=== PATIENT | male | born 1945 | race Caucasian/White ===

== ENCOUNTER → 2016-11-11 | Outpatient (CLI) | payer MEDICARE, OTHER ==
[2016-11-11 09:15] LABS: ABSOLUTE EOSINOPHILS # (AUTO) 0.1 10^3/uL (0.0-0.6); ABSOLUTE MONOCYTES (AUTO) 0.4 10^3/uL (0.1-1.4); ABSOLUTE NEUT (AUTO) 3.4 10^3/uL (1.7-8.2); BASOPHILS % (AUTO) 0.7 % (0-2); EOSINOPHILS % (AUTO) 2.3 % (0-6); HEMOGLOBIN 15.6 g/dL (13.5-17.0); HGB HCT DIFFERENCE 1.8; LYMPHOCYTES % (AUTO) 19.8 % (13-45); MEAN CORPUSCULAR HGB CONC 34.7 g/dL (32.0-36.0); MEAN CORPUSCULAR VOLUME 98 fl (80-97); MONOCYTES % (AUTO) 8.1 % (3-13); RED BLOOD COUNT 4.59 10^6/uL (4.35-5.55); RED CELL DISTRIBUTION WIDTH 13.1 % (11.5-14.0); SEGMENTED NEUTROPHILS % (AUTO) 69.1 % (42-78); WHITE BLOOD COUNT 4.9 10^3/uL (4.0-10.5)
[2016-11-11 09:34] LABS: ALANINE AMINOTRANSFERASE 50 U/L (21-72); ALKALINE PHOSPHATASE 99 U/L (38-126); ANION GAP 11 (5-19); ASPARTATE AMINO TRANSFERASE 38 U/L (17-59); BILIRUBIN,DIRECT 0.3 mg/dL (0.0-0.4); BILIRUBIN,TOTAL 0.9 mg/dL (0.2-1.3); BLOOD UREA NITROGEN 14 mg/dL (7-20); CALCIUM 9.4 mg/dL (8.4-10.2); CARBON DIOXIDE 22 mmol/L (22-30); CHLORIDE 107 mmol/L (98-107); CHOLESTEROL 190.87 mg/dL (0-200); CREATININE RESULT 0.82 mg/dL (0.52-1.25); Direct HDL 34 mg/dL (>40); GLUCOSE 105 mg/dL (75-110); POTASSIUM 4.2 mmol/L (3.6-5.0); SODIUM 140.2 mmol/L (137-145); TOTAL PROTEIN 6.7 g/dL (6.3-8.2); TRIGLYCERIDES 187 mg/dL (<150); URIC ACID 5.9 mg/dL (3.5-8.5)
[2016-11-11 09:45] LABS: DIRECT LDL 123 mg/dL (<100)
[2016-11-11 09:51] LABS: VLDL CHOLESTEROL 37.4 mg/dL (10-31)
== END ==
LOC: OD 08:35
PROVIDERS: ATTEND Urology
DX: R97.20 Elevated prostate specific antigen [PSA] (principal); E78.5 Hyperlipidemia, unspecified; E03.9 Hypothyroidism, unspecified; M10.9 Gout, unspecified; R53.83 Other fatigue; M19.90 Unspecified osteoarthritis, unspecified site
CPT/HCPCS: 36415; 80053; 80061; 84153; 84443; 84550; 85025

== ENCOUNTER → 2017-02-11 | Outpatient (CLI) | payer MEDICARE, OTHER ==
[2017-02-11 11:37] LABS: ALANINE AMINOTRANSFERASE 55 U/L (21-72); ALBUMIN 3.9 g/dL (3.5-5.0); ALKALINE PHOSPHATASE 89 U/L (38-126); ASPARTATE AMINO TRANSFERASE 35 U/L (17-59); BILIRUBIN,DIRECT 0.4 mg/dL (0.0-0.4); BILIRUBIN,TOTAL 1.2 mg/dL (0.2-1.3); TOTAL PROTEIN 6.1 g/dL (6.3-8.2)
== END ==
LOC: OD 09:58
PROVIDERS: ATTEND Internal Medicine
DX: Z79.899 Other long term (current) drug therapy (principal)
CPT/HCPCS: 36415; 80076

== ENCOUNTER → 2017-04-18 | Outpatient (CLI) | payer MEDICARE, OTHER ==
[2017-04-19 11:37] LABS: HEPATITIS A AB TOTAL Positive (Negative); HEPATITIS B SURFACE AB QUANT <3.1 mIU/mL (Immunity>9.9)
== END ==
LOC: LAB 09:36
PROVIDERS: ATTEND Internal Medicine
DX: Z01.84 Encounter for antibody response examination (principal); R10.13 Epigastric pain
CPT/HCPCS: 36415; 86317; 86708; 86709

== ENCOUNTER → 2017-04-21 | Outpatient (CLI) | payer MEDICARE, OTHER ==
--- NOTE | 2017-04-21 16:43 | RADIOLOGY REPORT (SQ) ---
EXAM DESCRIPTION: FEMUR RIGHT COMPLETED DATE/TIME: 04/21/2017 3:58 pm REASON FOR STUDY: M25.551 M89.9 RIGHT HIP AND FEMUR PAIN M25.551 PAIN IN RIGHT HIP M89.9 DISORDER OF BONE, UNSPECIFIED COMPARISON: None. NUMBER OF VIEWS: Two views. TECHNIQUE: Two radiographic images acquired of the right femur to include hip and knee in at least o ne projection. LIMITATIONS: None. FINDINGS: MINERALIZATION: Normal. BONES: No acute fracture. Right total hip arthroplasty hardware appears in expected position. No wo rrisome bone lesions. SOFT TISSUES: No obvious swelling or foreign body. OTHER: No other significant finding. IMPRESSION: NO RADIOGRAPHIC EVIDENCE OF ACUTE INJURY. TECHNICAL DOCUMENTATION: JOB ID: [id number] [place]-72 2010 [employer]- All Rights Reserved
--- NOTE | 2017-04-21 16:46 | RADIOLOGY REPORT (SQ) ---
EXAM DESCRIPTION: HIP RIGHT AP/LATERAL COMPLETED DATE/TIME: 04/21/2017 3:58 pm REASON FOR STUDY: M25.551 M89.9 RIGHT HIP AND FEMUR PAIN M25.551 PAIN IN RIGHT HIP M89.9 DISORDER OF BONE, UNSPECIFIED COMPARISON: None. NUMBER OF VIEWS: Two views. TECHNIQUE: AP pelvis and additional frog-leg view of the right hip. LIMITATIONS: None. FINDINGS: MINERALIZATION: Normal. RIGHT HIP: No fracture or dislocation. No acute fracture. Right total hip arthroplasty hardware jerman ears in expected position. No worrisome bone lesions. LEFT HIP: No fracture or dislocation. No acute fracture. Left total hip arthroplasty hardware appear s in expected position. No worrisome bone lesions. PUBIS AND ISCHIUM: No fracture. PELVIS: No fracture. SACRUM: No fracture or dislocation. No worrisome bone lesions. LOWER LUMBAR SPINE: Moderate degenerative disc disease. SOFT TISSUES: No findings. OTHER: No other significant finding. IMPRESSION: Bilateral total hip arthroplasty hardware appears in expected position. NO RADIOGRAPHIC EVIDENCE OF ACUTE INJURY. TECHNICAL DOCUMENTATION: JOB ID: [id number] [place]-72 2010 [employer]- All Rights Reserved
== END ==
LOC: RAD 15:31
PROVIDERS: ATTEND Internal Medicine
DX: M25.551 Pain in right hip (principal); M89.9 Disorder of bone, unspecified; Z96.642 Presence of left artificial hip joint

== ENCOUNTER → 2017-07-23 | Outpatient (CLI) | payer MEDICARE, OTHER ==
--- NOTE | 2017-07-23 15:12 | RADIOLOGY REPORT (SQ) ---
EXAM DESCRIPTION: CT LT UPPER EXTREMITY WITHOUT COMPLETED DATE/TIME: 07/23/2017 1:42 pm REASON FOR STUDY: M25.512 PAIN IN LEFT SHOULDER M25.512 PAIN IN LEFT SHOULDER COMPARISON: None. TECHNIQUE: Axial imaging performed through the leftshoulder with reformatted oblique coronal and obl ique sagittal imaging windowed for bone and soft tissues. All CT scanners at this facility use dose modulation, iterative reconstruction, and/or weight based d osing when appropriate to reduce radiation dose to as low as reasonably achievable (ALARA). [facility]: Dose Right [facility]: CareDose [facility]: Dose Right [facility]: Teradose 4D [facility]: [employer] RADIATION DOSE: CT Rad equipment meets quality standard of care and radiation dose reduction techniq ues were employed. CTDIvol: 17.5 mGy. DLP: 378 mGy-cm. mGy. LIMITATIONS: Artifact from metallic left humeral head replacement. Distal most tip of the left prox imal humerus component of the joint replacement is incompletely included in the field of view. FINDINGS: Left shoulder prosthesis is present. The flat glenoid component is anchored by multiple s crews, seen on axial images 20-25. The convex dome-shaped glenoid prosthesis does not align properly with the flat glenoid component. The convex dome-shaped component is rotated superiorly and anterio rly, best shown on axial image 20-25, and sagittal reconstruction image 35. The proximal humeral component is posterior and inferior to the dome shaped glenoid portion of the re placement. This is best shown on coronal reconstruction image 53. There is lucency between the [place] bony humerus and humeral component along the proximal humeral met aphysis which could indicate loosening of the prosthesis. Visualized left lung, left ribs, left hilar and mediastinal structures are unremarkable. 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
== END ==
LOC: RAD 13:33
PROVIDERS: ATTEND Orthopaedic Surgery
DX: M25.512 Pain in left shoulder (principal)

== ENCOUNTER → 2017-08-06 | Outpatient (CLI) | payer MEDICARE, OTHER ==
[2017-08-06 09:59] LABS: ABSOLUTE BASOPHILS # (AUTO) 0.1 10^3/uL (0.0-0.2); ABSOLUTE EOSINOPHILS # (AUTO) 0.1 10^3/uL (0.0-0.6); ABSOLUTE LYMPHOCYTES (AUTO) 1.3 10^3/uL (0.5-4.7); ABSOLUTE MONOCYTES (AUTO) 0.4 10^3/uL (0.1-1.4); ABSOLUTE NEUT (AUTO) 3.4 10^3/uL (1.7-8.2); EOSINOPHILS % (AUTO) 2.2 % (0-6); HEMOGLOBIN 15.2 g/dL (13.5-17.0); LYMPHOCYTES % (AUTO) 24.6 % (13-45); MEAN CORPUSCULAR HEMOGLOBIN 34.2 pg (27.0-33.4); MEAN CORPUSCULAR HGB CONC 35.4 g/dL (32.0-36.0); MEAN CORPUSCULAR VOLUME 97 fl (80-97); MONOCYTES % (AUTO) 8.3 % (3-13); PLATELET COUNT 198 10^3/uL (150-450); RED BLOOD COUNT 4.45 10^6/uL (4.35-5.55); RED CELL DISTRIBUTION WIDTH 12.6 % (11.5-14.0); SEGMENTED NEUTROPHILS % (AUTO) 63.9 % (42-78); TOTAL CELLS COUNTED % (AUTO) 100 %; WHITE BLOOD COUNT 5.3 10^3/uL (4.0-10.5)
[2017-08-06 10:13] LABS: ALANINE AMINOTRANSFERASE 50 U/L (21-72); ALKALINE PHOSPHATASE 92 U/L (38-126); ANION GAP 8 (5-19); ASPARTATE AMINO TRANSFERASE 33 U/L (17-59); BILIRUBIN,DIRECT 0.2 mg/dL (0.0-0.4); BLOOD UREA NITROGEN 15 mg/dL (7-20); CALCIUM 9.6 mg/dL (8.4-10.2); CARBON DIOXIDE 28 mmol/L (22-30); CHLORIDE 105 mmol/L (98-107); CHOLESTEROL 156.03 mg/dL (0-200); GLUCOSE 102 mg/dL (75-110); POTASSIUM 4.6 mmol/L (3.6-5.0); SODIUM 141.3 mmol/L (137-145); TOTAL PROTEIN 6.1 g/dL (6.3-8.2); TRIGLYCERIDES 155 mg/dL (<150)
[2017-08-06 10:24] LABS: DIRECT LDL 85 mg/dL (<100)
[2017-08-06 10:31] LABS: FREE T4 (FREE THYROXINE) 0.7 ng/dL (0.78-2.19)
[2017-08-06 10:45] LABS: THYROID STIMULATING HORMONE 4.62 uIU/mL (0.47-4.68)
== END ==
LOC: OD 08:38
PROVIDERS: ATTEND Internal Medicine
DX: E04.1 Nontoxic single thyroid nodule (principal); E78.5 Hyperlipidemia, unspecified; R35.1 Nocturia; R53.83 Other fatigue; M19.90 Unspecified osteoarthritis, unspecified site
CPT/HCPCS: 36415; 80053; 80061; 84153; 84439; 84443; 85025

== ENCOUNTER → 2017-10-29 | Outpatient (CLI) | payer MEDICARE, OTHER | LOC: RAD 06:37 | PROVIDERS: ATTEND Internal Medicine | DX: Z53.9 Procedure and treatment not carried out, unspecified reason (principal) ==

== ENCOUNTER 2017-11-30 20:29 | Emergency (ER) | payer MEDICARE, OTHER ==
[2017-11-30] MEDS ORDERED: CHLORPROMAZINE HCL 25 MG TABLET PO ONE (21:20)
--- NOTE | 2017-11-30 21:22 | ER Document Report ---
ED Medical Screen (RME) - General Chief Complaint: Breathing Difficulty Stated Complaint: SHORTNESS OF BREATH Time Seen by Provider: 11/30/17 21:15 Mode of Arrival: Ambulatory Information source: Patient TRAVEL OUTSIDE OF THE [place] IN LAST 30 DAYS: No - HPI Patient complains to provider of: Intractable hiccups, shortness of breath, lower extremity swelling Onset: Yesterday Onset/Duration: Persistent Quality of pain: Achy Severity: Moderate Pain Level: 3 Notes: 11/30/17 21:21 Patient is a 72-year-old male presenting to the emergency room tractable hiccups for the past 6 days, with lower extremity swelling and difficulty breathing, patient had shoulder revision surgery 6 days ago and had some hardware removed from the left shoulder, since being discharged after the surgery he developed hiccups and they have been persistent over the past 6 days , states he feels difficulty breathing because every time he tries to take a deep breath he hiccups and cannot get a good amount of air and, he is also developed bilateral lower extremity edema 11/30/17 21:22 RAPID MEDICAL EVALUATION DISCLOSURE I have seen this patient as part of a Rapid Medical Evaluation and, if applicable, placed any initially appropriate orders. The patient will be seen and fully evaluated, including a full history and physical exam, by a provider ( in Main ED or Fast Track) when a room becomes available. - Related Data Allergies/Adverse Reactions: No Known Allergies Allergy (Verified 07/14/15 02:11) Past Medical History - Social History Chew tobacco use (# tins/day): No Frequency of alcohol use: None Drug Abuse: None - Past Medical History Cardiac Medical History: Denies: Hx Atrial Fibrillation, Hx Congestive Heart Failure, Hx Coronary Artery Disease, Hx Heart Attack, Hx Hypercholesterolemia, Hx Hypertension, Hx Peripheral Vascular Disease, Hx Pulmonary Embolism, Hx Heart Murmur Pulmonary Medical History: Denies: Hx Asthma, Hx Bronchitis, Hx COPD, Hx Pneumonia, Hx Respiratory Failure, Hx Sleep Apnea, Hx Tuberculosis Neurological Medical History: Denies: Hx Cerebrovascular Accident, Hx Seizures Endocrine Medical History: Denies: Hx Graves' Disease, Hx Hyperthyroidism, Hx Hypothyroidism Renal/ Medical History: Denies: Hx Benign Prostatic Hyperplasia, Hx End Stage Renal Disease, Hx Kidney Stones, Hx Peritoneal Dialysis Malignancy Medical History: Denies Hx Leukemia, Denies Hx Lung Cancer GI Medical History: Reports: Hx Hiatal Hernia. Denies: Hx Crohn's Disease, Hx Gastroesophageal Reflux Disease, Hx Irritable Bowel, Hx Liver Failure, Hx Pancreatitis, Hx Ulcer Musculoskeltal Medical History: Reports Hx Arthritis, Denies Hx Fibromyalgia, Denies Hx Multiple Sclerosis, Denies Hx Muscular Dystrophy Psychiatric Medical History: Denies: Hx Bipolar Disorder, Hx Dementia, Hx Depression, Hx Post Traumatic Stress Disorder, Hx Schizophrenia Traumatic Medical History: Denies: Hx Fractures Infectious Medical History: Denies: Hx HIV Past Surgical History: Reports: Hx Abdominal Surgery - inguinal hernia repair, Hx Appendectomy, Hx Herniorrhaphy, Hx Orthopedic Surgery - shoulder x4, hip replacement x3,, Hx Tonsillectomy. Denies: Hx Bowel Surgery, Hx Cholecystectomy , Hx Colostomy, Hx Coronary Artery Bypass Graft, Hx Gastric Bypass Surgery, Hx Pacemaker - Immunizations Hx Diphtheria, Pertussis, Tetanus Vaccination: Yes Physical Exam - Vital signs Vitals: Temp Pulse Resp BP Pulse Ox 98.7 F 72 16 177/81 H 97 11/30/17 20:37 11/30/17 20:37 11/30/17 20:37 11/30/17 20:37 11/30/17 20:37 Course - Vital Signs Vital signs: Temp Pulse Resp BP Pulse Ox 98.7 F 72 16 177/81 H 97 11/30/17 20:37 11/30/17 20:37 11/30/17 20:37 11/30/17 20:37 11/30/17 20:37 Doctor's Discharge - Discharge Referrals: DAVIE BANEGAS MD [Primary Care Provider] - Follow up as needed
[2017-11-30 22:27] LABS: ABSOLUTE LYMPHOCYTES (AUTO) 0.9 10^3/uL (0.5-4.7); ABSOLUTE MONOCYTES (AUTO) 0.5 10^3/uL (0.1-1.4); ABSOLUTE NEUT (AUTO) 5.7 10^3/uL (1.7-8.2); BASOPHILS % (AUTO) 0.5 % (0-2); EOSINOPHILS % (AUTO) 0.7 % (0-6); HEMATOCRIT 38.2 % (37.9-51.0); HEMOGLOBIN 13.5 g/dL (13.5-17.0); LYMPHOCYTES % (AUTO) 12.7 % (13-45); MEAN CORPUSCULAR HEMOGLOBIN 35.1 pg (27.0-33.4); MEAN CORPUSCULAR HGB CONC 35.4 g/dL (32.0-36.0); MEAN CORPUSCULAR VOLUME 99 fl (80-97); MONOCYTES % (AUTO) 7.3 % (3-13); PLATELET COUNT 162 10^3/uL (150-450); RED BLOOD COUNT 3.85 10^6/uL (4.35-5.55); RED CELL DISTRIBUTION WIDTH 12.8 % (11.5-14.0); SEGMENTED NEUTROPHILS % (AUTO) 78.8 % (42-78); TOTAL CELLS COUNTED % (AUTO) 100 %; WHITE BLOOD COUNT 7.2 10^3/uL (4.0-10.5)
--- NOTE | 2017-11-30 22:36 | RADIOLOGY REPORT (SQ) ---
EXAM DESCRIPTION: CHEST SINGLE VIEW COMPLETED DATE/TIME: 11/30/2017 10:16 pm REASON FOR STUDY: difficulty breathing COMPARISON: Chest x-ray 12/13/2014. EXAM PARAMETERS: NUMBER OF VIEWS: One view. TECHNIQUE: Single frontal radiographic view of the chest acquired. RADIATION DOSE: NA LIMITATIONS: None. FINDINGS: LUNGS AND PLEURA: No consolidation, pneumothorax or pleural effusion. MEDIASTINUM AND HILAR STRUCTURES: There is soft tissue density at the superior mediastinum with devia tion of the trachea to the left. HEART AND VASCULAR STRUCTURES: Heart normal in size. Normal vasculature. BONES: Postsurgical changes at the left shoulder with antibiotic beads at the glenohumeral joint. r-fluid levels are seen at the left shoulder. Suture anchors at the proximal right humerus. HARDWARE: None in the chest. IMPRESSION: 1. No consolidation or pleural effusion. Soft tissue density at the superior mediastin um with deviation of the trachea to the left, may represent an enlarged thyroid gland. CT can help i n further evaluation and exclusion of a mediastinal mass. 2. Postsurgical changes at the left shoulder with antibiotic beads at the glenohumeral joint. Air-fl uid levels at the left shoulder; please correlate with clinical exam to exclude abscess formation. TECHNICAL DOCUMENTATION: JOB ID: [id number] [place]-64 2010 [employer]- All Rights Reserved Reading location - IP/workstation name: [email or web address]
[2017-11-30 22:47] LABS: ALANINE AMINOTRANSFERASE 48 U/L (21-72); ALBUMIN 3.7 g/dL (3.5-5.0); ALKALINE PHOSPHATASE 94 U/L (38-126); ANION GAP 12 (5-19); ASPARTATE AMINO TRANSFERASE 44 U/L (17-59); BILIRUBIN,DIRECT 0.2 mg/dL (0.0-0.4); BILIRUBIN,TOTAL 0.8 mg/dL (0.2-1.3); BLOOD UREA NITROGEN 13 mg/dL (7-20); CALCIUM 9.6 mg/dL (8.4-10.2); CARBON DIOXIDE 26 mmol/L (22-30); CHLORIDE 105 mmol/L (98-107); CREATINE KINASE 152 U/L (55-170); GLUCOSE 99 mg/dL (75-110); POTASSIUM 4.3 mmol/L (3.6-5.0); SODIUM 142.7 mmol/L (137-145); TOTAL PROTEIN 5.8 g/dL (6.3-8.2)
[2017-11-30 22:59] LABS: CREATINE KINASE MB 0.84 ng/mL (<4.55); TROPONIN I 0.013 ng/mL
[2017-12-01] MEDS ORDERED: LIDOCAINE 2% VISCOUS SOLN 20 ML UDCUP PO ONE (00:04)
--- NOTE | 2017-12-01 00:15 | ER Document Report ---
ED General - General Chief Complaint: Breathing Difficulty Stated Complaint: SHORTNESS OF BREATH Time Seen by Provider: 11/30/17 21:15 Mode of Arrival: Ambulatory Notes: The patient is a 72-year-old male, past medical history anxiety, left shoulder pain and surgeries, thyroid goiter that is intermittently drained by ENT, presents with 6 days of hiccups after he had left shoulder surgery in [place]. He was under general anesthetic and was intubated. Patient denies hemoptysis , shortness of breath, nausea, vomiting, fevers, abdominal pain or back pain. TRAVEL OUTSIDE OF THE [place] IN LAST 30 DAYS: No - Related Data Allergies/Adverse Reactions: No Known Allergies Allergy (Verified 07/14/15 02:11) Past Medical History - General Information source: Patient - Social History Smoking Status: Never Smoker Chew tobacco use (# tins/day): No Frequency of alcohol use: None Drug Abuse: None Family History: Reviewed & Not Pertinent Patient has suicidal ideation: No Patient has homicidal ideation: No - Past Medical History Cardiac Medical History: Denies: Hx Atrial Fibrillation, Hx Congestive Heart Failure, Hx Coronary Artery Disease, Hx Heart Attack, Hx Hypercholesterolemia, Hx Hypertension, Hx Peripheral Vascular Disease, Hx Pulmonary Embolism, Hx Heart Murmur Pulmonary Medical History: Denies: Hx Asthma, Hx Bronchitis, Hx COPD, Hx Pneumonia, Hx Respiratory Failure, Hx Sleep Apnea, Hx Tuberculosis Neurological Medical History: Denies: Hx Cerebrovascular Accident, Hx Seizures Endocrine Medical History: Denies: Hx Graves' Disease, Hx Hyperthyroidism, Hx Hypothyroidism Renal/ Medical History: Denies: Hx Benign Prostatic Hyperplasia, Hx End Stage Renal Disease, Hx Kidney Stones, Hx Peritoneal Dialysis Malignancy Medical History: Denies Hx Leukemia, Denies Hx Lung Cancer GI Medical History: Reports: Hx Hiatal Hernia. Denies: Hx Crohn's Disease, Hx Gastroesophageal Reflux Disease, Hx Irritable Bowel, Hx Liver Failure, Hx Pancreatitis, Hx Ulcer Musculoskeletal Medical History: Reports Hx Arthritis, Denies Hx Fibromyalgia, Denies Hx Multiple Sclerosis, Denies Hx Muscular Dystrophy Psychiatric Medical History: Denies: Hx Bipolar Disorder, Hx Dementia, Hx Depression, Hx Post Traumatic Stress Disorder, Hx Schizophrenia Traumatic Medical History: Denies: Hx Fractures Infectious Medical History: Denies: Hx HIV Past Surgical History: Reports: Hx Abdominal Surgery - inguinal hernia repair, Hx Appendectomy, Hx Herniorrhaphy, Hx Orthopedic Surgery - shoulder x4, hip replacement x3,, Hx Tonsillectomy. Denies: Hx Bowel Surgery, Hx Cholecystectomy , Hx Colostomy, Hx Coronary Artery Bypass Graft, Hx Gastric Bypass Surgery, Hx Pacemaker - Immunizations Hx Diphtheria, Pertussis, Tetanus Vaccination: Yes Review of Systems - Review of Systems Notes: REVIEW OF SYSTEMS: CONSTITUTIONAL: -fevers, -chills EENT: -eye pain, -difficulty swallowing, -nasal congestion CARDIOVASCULAR: -chest pain, -syncope. RESPIRATORY: +cough, +hiccups, -SOB GASTROINTESTINAL: -abdominal pain, -nausea, -vomiting, -diarrhea GENITOURINARY: -dysuria, -hematuria MUSCULOSKELETAL: +left shoulder pain, -back pain, -neck pain SKIN: -rash or skin lesions. HEMATOLOGIC: -easy bruising or bleeding. LYMPHATIC: -swollen, enlarged glands. NEUROLOGICAL: -altered mental status or loss of consciousness, -headache, - neurologic symptoms PSYCHIATRIC: -anxiety, -depression. ALL OTHER SYSTEMS REVIEWED AND NEGATIVE. Physical Exam - Vital signs Vitals: Temp Pulse Resp BP Pulse Ox 98.7 F 72 16 177/81 H 97 11/30/17 20:37 11/30/17 20:37 11/30/17 20:37 11/30/17 20:37 11/30/17 20:37 - Notes Notes: PHYSICAL EXAMINATION: GENERAL: Well-appearing, well-nourished and in no acute distress. Intermittent hiccuping. HEAD: Atraumatic, normocephalic. EYES: Pupils equal round and reactive to light, extraocular movements intact, sclera anicteric, conjunctiva are normal. ENT: nares patent, oropharynx clear without exudates. Moist mucous membranes. NECK: Normal range of motion, supple without lymphadenopathy LUNGS: Breath sounds clear to auscultation bilaterally and equal. No wheezes rales or rhonchi. HEART: Regular rate and rhythm without murmurs ABDOMEN: Soft, nontender, normoactive bowel sounds. No guarding, no rebound. No masses appreciated. EXTREMITIES: Left shoulder surgical wound without erythema or discharge. No pitting or edema. No cyanosis. NEUROLOGICAL: Cranial nerves grossly intact. Normal speech, normal gait. Normal sensory and motor exams. PSYCH: Normal mood, normal affect. SKIN: Warm, Dry, normal turgor, no rashes or lesions noted. Course - Re-evaluation Re-evalutation: After Thorazine and oral lidocaine, his hiccups have improved, although he has intermittent hiccups still. X-ray showed a mediastinal mass, but CT of the chest showed his known large goiter. He does have the goiter drained intermittently by ENT and unsure if the size of this goiter is causing his hiccups. Suspect that the general anesthesia during shoulder surgery caused the hiccups. He has no signs of an abscess over his left shoulder and no leukocytosis or fever to suggest an abscess. The findings on CAT scan are related to postsurgical changes. Instructed him to follow-up with his primary care physician and ENT for further evaluation and treatment. - Vital Signs Vital signs: Temp Pulse Resp BP Pulse Ox 98.7 F 72 16 177/81 H 97 11/30/17 20:37 11/30/17 20:37 11/30/17 20:37 11/30/17 20:37 11/30/17 20:37 - Laboratory Result Diagrams: 11/30/17 22:00 11/30/17 22:00 Laboratory results interpreted by me: 11/30/17 11/30/17 22:00 22:00 RBC 3.85 L MCV 99 H MCH 35.1 H Seg Neutrophils % 78.8 H Lymphocytes % 12.7 L Total Protein 5.8 L - Diagnostic Test Radiology reviewed: Image reviewed, Reports reviewed Radiology results interpreted by me: CXR: 1. No consolidation or pleural effusion. Soft tissue density at the superior mediastinum with deviation of the trachea to the left, may represent an enlarged thyroid gland. CT can help in further evaluation and exclusion of a mediastinal mass. 2. Postsurgical changes at the left shoulder with antibiotic beads at the glenohumeral joint. Air- fluid levels at the left shoulder; please correlate with clinical exam to exclude abscess formation. - EKG Interpretation by Me EKG shows normal: Sinus rhythm Rate: Normal [place]/QRS: RBBB, LAHB/LAFB When compared to previous EKG there are: No significant change Discharge - Discharge Clinical Impression: Hiccups, Thyroid goiter Condition: Stable Disposition: HOME, SELF-CARE Additional Instructions: Hiccups Hiccups are contractions of the diaphragm muscle. They usually occur without warning, but they may follow over-eating or drinking large amounts of soda. Hiccups are usually harmless. We don't know why some people have prolonged bouts of hiccups. Most of the time, they will eventually go away without treatment. Medication can be prescribed to help control hiccups. If hiccups persist, you'll need a medical work-up to see if there's any underlying illness. Return if there's any significant change, such as chest pain , abdominal pain, vomiting, or fever. Prescriptions: Chlorpromazine HCl [Thorazine 10 Mg Tablet] 10 mg PO Q8H PRN #10 tablet PRN Reason: Forms: Elevated Blood Pressure Referrals: DAVIE BANEGAS MD [Primary Care Provider] - Follow up as needed
[2017-12-01] MEDS ORDERED: MIDAZOLAM 2 MG/2 ML INJ IV ONE (00:44)
--- NOTE | 2017-12-01 02:33 | RADIOLOGY REPORT (SQ) ---
CT chest with contrast on 12/01/2017 at 1:57 AM CLINICAL INDICATION: Mediastinal mass, hiccups, follow-up abnormal chest x-ray TECHNIQUE: Multiple axial images are obtained throughout the chest following the administration of IV contrast. This exam was performed according to our departmental dose-optimization program, which includes automated exposure control, adjustment of the mA and/or kV according to patient size and/or use of iterative reconstruction technique. Total DLP is 635.62 mGy*cm. COMPARISON: None FINDINGS: There is a partially imaged centrally low density right-sided substernal thyroid goiter. This accounts for the abnormality on x-ray. There is no pleural or pericardial effusion. Coronary artery calcifications are noted. There is no thoracic adenopathy. The substernal right-sided thyroid goiter does deviate the trachea to the left. Visualized abdomen is unremarkable. There is minimal bibasilar atelectasis. The lungs are otherwise clear. There is multifocal air and fluid collections in the left shoulder with likely antibiotic beads in place in and adjacent to the left proximal humerus. The patient has likely had left shoulder prosthesis removal with antibiotic bead therapy. Recommend clinical correlation as to the timing of any recent surgery. The air and fluid may all be postoperative in nature but cannot exclude abscesses. No acute bony abnormality is noted. IMPRESSION: 1. Large right-sided substernal thyroid goiter. 2. Multifocal air and fluid collections in the left shoulder may be postoperative in nature but cannot exclude abscesses. Recommend clinical correlation as to the patient's timing of any recent surgery.
[2017-12-01 03:19] VITALS: BP 144/74
--- NOTE | 2017-12-01 06:50 | EKG REPORT ---
SEVERITY:- ABNORMAL ECG - SINUS RHYTHM WITH BLOCKED APC RBBB AND LAFB : Confirmed by: Onelia Chung 01-Dec-2017 06:49:48
== END 2017-12-01 03:00 | disposition home or self-care (01) ==
LOC: ER 20:29
DX: R06.6 Hiccough (principal); E04.9 Nontoxic goiter, unspecified; I45.2 Bifascicular block; M25.512 Pain in left shoulder; Z98.890 Other specified postprocedural states
CPT/HCPCS: 93005; 99285; 96374; 36415; 82553; 82550; 85025; 80053; 84484; 83880; 71045; 71260; 93010; J2250; A9270; J3490

== ENCOUNTER → 2018-01-02 | Outpatient (CLI) | payer MEDICARE, OTHER ==
[2018-01-02 13:51] LABS: ABSOLUTE MONOCYTES (AUTO) 0.4 10^3/uL (0.1-1.4); ABSOLUTE NEUT (AUTO) 4.7 10^3/uL (1.7-8.2); BASOPHILS % (AUTO) 0.7 % (0-2); EOSINOPHILS % (AUTO) 0.8 % (0-6); HEMATOCRIT 40.1 % (37.9-51.0); HEMOGLOBIN 14.3 g/dL (13.5-17.0); LYMPHOCYTES % (AUTO) 16.1 % (13-45); MEAN CORPUSCULAR HEMOGLOBIN 35.4 pg (27.0-33.4); MEAN CORPUSCULAR HGB CONC 35.7 g/dL (32.0-36.0); MEAN CORPUSCULAR VOLUME 99 fl (80-97); MONOCYTES % (AUTO) 7.1 % (3-13); PLATELET COUNT 144 10^3/uL (150-450); RED BLOOD COUNT 4.04 10^6/uL (4.35-5.55); RED CELL DISTRIBUTION WIDTH 12.7 % (11.5-14.0); SEGMENTED NEUTROPHILS % (AUTO) 75.3 % (42-78); TOTAL CELLS COUNTED % (AUTO) 100 %; WHITE BLOOD COUNT 6.2 10^3/uL (4.0-10.5)
[2018-01-02 14:22] LABS: ALANINE AMINOTRANSFERASE 46 U/L (21-72); ALBUMIN 3.7 g/dL (3.5-5.0); ALKALINE PHOSPHATASE 105 U/L (38-126); ANION GAP 10 (5-19); ASPARTATE AMINO TRANSFERASE 30 U/L (17-59); BILIRUBIN,DIRECT 0.2 mg/dL (0.0-0.4); BILIRUBIN,TOTAL 0.7 mg/dL (0.2-1.3); BLOOD UREA NITROGEN 11 mg/dL (7-20); CALCIUM 9.4 mg/dL (8.4-10.2); CARBON DIOXIDE 26 mmol/L (22-30); CHLORIDE 108 mmol/L (98-107); GLUCOSE 92 mg/dL (75-110); POTASSIUM 4.3 mmol/L (3.6-5.0); TOTAL PROTEIN 6.1 g/dL (6.3-8.2)
== END ==
LOC: OD 12:45
PROVIDERS: ATTEND Orthopaedic Surgery
DX: Z11.2 Encounter for screening for other bacterial diseases (principal); I10 Essential (primary) hypertension
CPT/HCPCS: 36415; 80053; 85025; 87070

== ENCOUNTER → 2018-10-30 | Outpatient (CLI) | payer MEDICARE, OTHER ==
[2018-10-30 09:46] LABS: ABSOLUTE EOSINOPHILS # (AUTO) 0.1 10^3/uL (0.0-0.6); ABSOLUTE MONOCYTES (AUTO) 0.4 10^3/uL (0.1-1.4); ABSOLUTE NEUT (AUTO) 3.2 10^3/uL (1.7-8.2); BASOPHILS % (AUTO) 0.8 % (0-2); EOSINOPHILS % (AUTO) 1.5 % (0-6); HEMATOCRIT 43.4 % (37.9-51.0); HEMOGLOBIN 15.2 g/dL (13.5-17.0); LYMPHOCYTES % (AUTO) 21.4 % (13-45); MEAN CORPUSCULAR HEMOGLOBIN 34.5 pg (27.0-33.4); MEAN CORPUSCULAR HGB CONC 35.1 g/dL (32.0-36.0); MEAN CORPUSCULAR VOLUME 98 fl (80-97); MONOCYTES % (AUTO) 8.1 % (3-13); PLATELET COUNT 158 10^3/uL (150-450); RED CELL DISTRIBUTION WIDTH 13.1 % (11.5-14.0); SEGMENTED NEUTROPHILS % (AUTO) 68.2 % (42-78); TOTAL CELLS COUNTED % (AUTO) 100 %; WHITE BLOOD COUNT 4.7 10^3/uL (4.0-10.5)
[2018-10-30 10:19] LABS: ALANINE AMINOTRANSFERASE 41 U/L (21-72); ALBUMIN 3.9 g/dL (3.5-5.0); ALKALINE PHOSPHATASE 83 U/L (38-126); ANION GAP 8 (5-19); ASPARTATE AMINO TRANSFERASE 28 U/L (17-59); BILIRUBIN,DIRECT 0.2 mg/dL (0.0-0.4); BLOOD UREA NITROGEN 12 mg/dL (7-20); CALCIUM 9.5 mg/dL (8.4-10.2); CARBON DIOXIDE 25 mmol/L (22-30); CHLORIDE 108 mmol/L (98-107); GLUCOSE 107 mg/dL (75-110); POTASSIUM 4.4 mmol/L (3.6-5.0); SODIUM 140.6 mmol/L (137-145); TRIGLYCERIDES 196 mg/dL (<150)
[2018-10-30 10:30] LABS: DIRECT LDL 84 mg/dL (<100); VLDL CHOLESTEROL 39.2 mg/dL (10-31)
== END ==
LOC: OD 09:04
PROVIDERS: ATTEND Internal Medicine
DX: I10 Essential (primary) hypertension (principal); E78.5 Hyperlipidemia, unspecified; E03.9 Hypothyroidism, unspecified
CPT/HCPCS: 36415; 80053; 80061; 85025

== ENCOUNTER → 2019-10-25 | Outpatient (CLI) | payer MEDICARE, OTHER ==
[2019-10-25 09:13] LABS: ABSOLUTE EOSINOPHILS # (AUTO) 0.1 10^3/uL (0.0-0.6); ABSOLUTE LYMPHOCYTES (AUTO) 1.2 10^3/uL (0.5-4.7); ABSOLUTE MONOCYTES (AUTO) 0.5 10^3/uL (0.1-1.4); ABSOLUTE NEUT (AUTO) 3.3 10^3/uL (1.7-8.2); BASOPHILS % (AUTO) 0.6 % (0-2); EOSINOPHILS % (AUTO) 1.6 % (0-6); HEMATOCRIT 42.9 % (37.9-51.0); HEMOGLOBIN 15.3 g/dL (13.5-17.0); LYMPHOCYTES % (AUTO) 24.1 % (13-45); MEAN CORPUSCULAR HEMOGLOBIN 35.1 pg (27.0-33.4); MEAN CORPUSCULAR HGB CONC 35.7 g/dL (32.0-36.0); MEAN CORPUSCULAR VOLUME 99 fl (80-97); MONOCYTES % (AUTO) 9.4 % (3-13); PLATELET COUNT 153 10^3/uL (150-450); RED BLOOD COUNT 4.36 10^6/uL (4.35-5.55); RED CELL DISTRIBUTION WIDTH 12.9 % (11.5-14.0); SEGMENTED NEUTROPHILS % (AUTO) 64.3 % (42-78); TOTAL CELLS COUNTED % (AUTO) 100 %; WHITE BLOOD COUNT 5.1 10^3/uL (4.0-10.5)
[2019-10-25 09:41] LABS: ALBUMIN 3.9 g/dL (3.5-5.0); ALKALINE PHOSPHATASE 96 U/L (38-126); ANION GAP 5 (5-19); ASPARTATE AMINO TRANSFERASE 32 U/L (17-59); BLOOD UREA NITROGEN 18 mg/dL (7-20); CALCIUM 9.5 mg/dL (8.4-10.2); CARBON DIOXIDE 28 mmol/L (22-30); CHLORIDE 105 mmol/L (98-107); CHOLESTEROL 148.48 mg/dL (0-200); GLUCOSE 107 mg/dL (75-110); POTASSIUM 4.5 mmol/L (3.6-5.0); TOTAL PROTEIN 6.3 g/dL (6.3-8.2); TRIGLYCERIDES 111 mg/dL (<150)
[2019-10-25 09:52] LABS: DIRECT LDL 86 mg/dL (<100)
== END ==
LOC: OD 08:38
PROVIDERS: ATTEND Family Medicine Geriatric Medicine
DX: E78.5 Hyperlipidemia, unspecified (principal); I10 Essential (primary) hypertension; Z79.899 Other long term (current) drug therapy
CPT/HCPCS: 36415; 80053; 80061; 84443; 85025